=== PATIENT | female | born 1995 ===

== ENCOUNTER 2021-12-12 06:43 | Emergency (ER) | payer BC ==
[2021-12-12 07:52] LABS: Urine Blood 1+ (Negative); Urine Glucose Trace (Negative); Urine Protein Negative (Negative); Urine pH 6.5 (5.0-7.0)
[2021-12-12 07:54] LABS: Absolute Lymphocytes (CBC) 2.9 K/uL (0.7-4.9); Hematocrit 45.5 % (36.0-45.0); Lymphocytes % 26.9 % (15.3-44.8); MPV 7.2 fL (7.6-11.3); RBC Red Blood Cell Count 4.99 M/uL (3.86-4.86)
--- NOTE | 2021-12-12 08:31 | RAD REPORT ---
EXAM DESCRIPTION: US - Transvaginal OB - 12/12/2021 8:22 am CLINICAL HISTORY: VAGINAL BLEEDING COMPARISON: CT-STONE PROTOCOL dated 04/29/2011 TECHNIQUE: Endovaginal sonography performed. FINDINGS: A normal shaped intrauterine gestational sac is present in the fundal portion of the endom etrial cavity. pole is identified with heart rate measured at 70 BPM. Yolk sac is visible. Ther e is no intrauterine hematoma identified. Cervical canal appears closed. Gestational sac and po le measurements indicate a 6 week 2 day age. No blood or fluid in the cul de sac. A 3.6 centimeter complex right ovarian cyst is present. Echogenic debris is present in the cyst. Bloo d flow is seen in the right ovarian stroma. Left ovary shows normal blood flow within the stroma. No left adnexal abnormality. IMPRESSION: Single 6 week 2 day IUP with measured heart rate of 70 BPM. Cervical canal appears closed with hematoma, mass or other intrauterine abnormality. Complex 3.6 centimeter right ovarian cyst.
[2021-12-12 08:50] LABS: BUN Blood Urea Nitrogen 8 mg/dL (7-18); Bicarbonate 23 mmol/L (21-32); Glucose Level 180 mg/dL (74-106); HCG, Quantitative 2795 mIU/mL (1-3); Potassium 3.9 mmol/L (3.5-5.1); Sodium Level 139 mmol/L (136-145)
--- NOTE | 2021-12-12 09:12 | ER ---
Nurse's Notes [facility] Name: Tarah Hedrick Age: 26 yrs Sex: Female : 1995 Arrival Date: 12/12/2021 Time: 06:50 Bed 14 Private MD: Diagnosis: Threatened Presentation: 12/12 07:07 Chief complaint: Patient states: Pt c/o vaginal bleeding x 2 days along with some abd ic1 cramping. Denies fever. 6-8 weeks iup. Also states she exp some vaginal burning. AAOx4. GCS 15.. Coronavirus screen: Vaccine status: Patient reports receiving the 1st dose of the Covid vaccine. Ebola Screen: No symptoms or risks identified at this time. Initial Sepsis Screen: Does the patient meet any 2 criteria? No. Patient's initial sepsis screen is negative. Does the patient have a suspected source of infection? No. Patient's initial sepsis screen is negative. Risk Assessment: Do you want to hurt yourself or someone else? Patient reports no desire to harm self or others. Onset of symptoms was December 10, 2021. 07:07 Method Of Arrival: Ambulatory ic1 07:07 Acuity: SHIVA 3 ic1 Triage Assessment: 07:10 General: Appears in no apparent distress. comfortable, Behavior is calm, cooperative. ic1 : Reports burning with urination, cramping, vaginal bleeding that is. CHECKER: 07:30 1, Full Term 0, 0, Living 0, LMP 10/15/2021, Verified, EDC cp 07/22/2022, Gestational age from LMP: 8 weeks 2 days 09:30 LMP 10/13/2021 ww Historical: - Allergies: 07:14 No Known Allergies; [place] - Home Meds: 07:14 None [Active]; [place] - PMHx: 07:14 None; [place] - PSHx: 07:14 None; [place] - Immunization history:: Adult Immunizations up to date. - Social history:: Smoking status: Patient reports the use of cigarette tobacco products, smokes one-half pack cigarettes per day. Screenin:14 Abuse screen: Denies threats or abuse. Denies injuries from another. Nutritional [place] screening: No deficits noted. Tuberculosis screening: No symptoms or risk factors identified. Fall Risk None identified. Assessment: 07:13 Obstetrical Assessment: General assessment: awake and alert, anxious, Patient reports [place] vaginal spoting. Pain: Complains of pain in abdomen. : Reports vaginal spotting. 07:56 General: Appears in no apparent distress. comfortable, Behavior is calm, cooperative, ww appropriate for age. General: patient states she is concerned about having diabetes and has not been evaluated.. Pain: Denies pain. Neuro: Level of Consciousness is awake, alert, obeys commands, Oriented to person, place, time, situation, Speech is normal. Cardiovascular: Denies chest pain, shortness of breath, Capillary refill < 3 seconds Patient's skin is warm and dry. Respiratory: Airway is patent Respiratory effort is even, unlabored, Respiratory pattern is regular, symmetrical. GI: No deficits noted. No signs and/or symptoms were reported involving the gastrointestinal system. : Reports blood when wiping. EENT: No deficits noted. No signs and/or symptoms were reported regarding the EENT system. Derm: Skin is healthy with good turgor, Skin temperature is warm. Musculoskeletal: No deficits noted. No signs and/or symptoms reported regarding the musculoskeletal system. 08:35 Reassessment: Patient appears in no apparent distress at this time. No changes from ww previously documented assessment. Patient and/or family updated on plan of care and expected duration. Pain level reassessed. Patient is alert, oriented x 3, equal unlabored respirations, skin warm/dry/pink. ultrasound at bedside, significant other at bedside. 09:20 Reassessment: Patient appears in no apparent distress at this time. No changes from ww previously documented assessment. Patient and/or family updated on plan of care and expected duration. Pain level reassessed. Patient is alert, oriented x 3, equal unlabored respirations, skin warm/dry/pink. Vital Signs: 07:07 BP 114 / 72; Pulse 85; Temp 98.6(O); Pulse Ox 96% ; ic1 08:15 BP 117 / 64; Pulse 86; Resp 18; Pulse Ox 97% on R/A; ww 09:21 BP 102 / 72; Pulse 77; Resp 18; Pulse Ox 98% on R/A; ww ED Course: 06:50 Patient arrived in ED. es 06:53 Dane Saldaña PA is PHCP. cp 06:53 Lucius Knapp MD is Attending Physician. cp 07:09 Triage completed. ic1 07:13 Shanell Mack, RN is Primary Nurse. ll3 07:14 Bed in low position. [place] 07:14 No provider procedures requiring assistance completed. [place] 07:15 Arm band placed on left wrist. [place] 07:56 Pulse ox on. NIBP on. Warm blanket given. ww 07:56 Initial lab(s) drawn, by me, sent to lab. Inserted saline lock: 20 gauge in right ww antecubital area, using aseptic technique. Blood collected. 08:23 US Transvaginal Ob In Process Unspecified. EDMS 09:30 intact, bleeding controlled, No redness/swelling at site. Pressure dressing applied. ww Administered Medications: No medications were administered Point of Care Testing: Urine : 09:30 hCG Reading: Positive; Control Reading: Positive; ww Outcome: 09:11 Discharge ordered by MD. 09:29 Discharged to home ambulatory, with significant other. ww 09:29 Condition: stable 09:29 Discharge instructions given to patient, significant other, Instructed on discharge instructions, follow up and referral plans. safe sex practices, safety practices, Demonstrated understanding of instructions, follow-up care. 09:32 Patient left the ED. ww Signatures: Dispatcher [employer] EDDarleen Schreiber Corey, MIKE PA Shanell Cheung, RN RN ll3 Yusra Parisi RN RN ww Shavon-StagerMadhuri RN RN ha Creggett, Iesha, RN RN ic1
--- NOTE | 2021-12-12 09:12 | EDPHYS ---
Physician Documentation [facility] Name: Tarah Hedrick Age: 26 yrs Sex: Female : 1995 Arrival Date: 12/12/2021 Time: 06:50 Bed 14 Private MD: ED Physician Lucius Knapp HPI: 12/12 07:30 This 26 yrs old Female presents to ER via Ambulatory with complaints of Vaginal cp Bleeding, + Preg <12wks. 07:30 The patient presents to the emergency department with vaginal bleeding, that is light, cp with no clots. course: care: at a clinic, Leakage of Fluid: none appreciated, Ultrasound: the patient has not had an ultrasound. Previous pregnancies: the patient has never been . Associated signs and symptoms: Pertinent positives: abdominal pain, vaginal bleeding, Pertinent negatives: chest pain, diarrhea, dysuria, fever, nausea, vomiting. UNCLAIMED PROPERTY OFFICER: 07:30 1, Full Term 0, 0, Living 0, LMP 10/15/2021, Verified, EDC cp 07/22/2022, Gestational age from LMP: 8 weeks 2 days 09:30 LMP 10/13/2021 ww Historical: - Allergies: 07:14 No Known Allergies; [place] - Home Meds: 07:14 None [Active]; [place] - PMHx: 07:14 None; [place] - PSHx: 07:14 None; [place] - Immunization history:: Adult Immunizations up to date. - Social history:: Smoking status: Patient reports the use of cigarette tobacco products, smokes one-half pack cigarettes per day. ROS: 07:35 Abdomen/GI: Positive for abdominal cramps. cp 07:35 Constitutional: Negative for fever. cp 07:35 : Positive for vaginal bleeding, Negative for urinary symptoms. Exam: 07:40 Constitutional: The patient appears in no acute distress, alert, awake, non-toxic, well cp developed, well nourished. 07:40 Head/Face: Normocephalic, atraumatic. cp 07:40 Eyes: Periorbital structures: appear normal, Conjunctiva: normal, no exudate, no injection, Sclera: no appreciated abnormality, Lids and lashes: appear normal, bilaterally. 07:40 Chest/axilla: Inspection: normal. 07:40 Cardiovascular: Rate: normal, Rhythm: regular. 07:40 Respiratory: the patient does not display signs of respiratory distress, Respirations: normal, no use of accessory muscles, no retractions, labored breathing, is not present, Breath sounds: are clear throughout, no decreased breath sounds, no stridor, no wheezing. 07:40 Abdomen/GI: Inspection: abdomen appears normal, Bowel sounds: active, all quadrants, Palpation: soft, in all quadrants, mild abdominal tenderness, in the suprapubic area, rebound tenderness, is not appreciated, involuntary guarding, is not appreciated. 07:40 Back: pain, is absent, ROM is normal. Vital Signs: 07:07 BP 114 / 72; Pulse 85; Temp 98.6(O); Pulse Ox 96% ; ic1 08:15 BP 117 / 64; Pulse 86; Resp 18; Pulse Ox 97% on R/A; ww 09:21 BP 102 / 72; Pulse 77; Resp 18; Pulse Ox 98% on R/A; ww MDM: 07:11 Patient medically screened. cp 08:00 Differential diagnosis: STD, ectopic . cp 09:09 Data reviewed: vital signs, nurses notes, lab test result(s), radiologic studies, cp ultrasound. Counseling: I had a detailed discussion with the patient and/or guardian regarding: the historical points, exam findings, and any diagnostic results supporting the discharge/admit diagnosis, lab results, radiology results, the need for outpatient follow up, an OB/Gyne specialist, to return to the emergency department if symptoms worsen or persist or if there are any questions or concerns that arise at home. ED course: VSS. Discussed results of labs and US showing IUP. Will discharge to home for continued monitoring. 12/12 07:20 Order name: Abo/rh Typing; Complete Time: 08:51 12/12 08:51 Interpretation: Reviewed. 12/12 07:20 Order name: Basic Metabolic Panel; Complete Time: 09:06 12/12 09:06 Interpretation: Normal except: CL 111; GLUC 180; CRE 0.51. 12/12 07:20 Order name: CBC with Diff; Complete Time: 08:15 12/12 08:15 Interpretation: Normal except: RBC 4.99; HGB 15.4; HCT 45.5; MCV 91.2; MPV 7.2. 12/12 07:20 Order name: Quantitative Hcg; Complete Time: 09:06 cp 12/12 09:06 Interpretation: HCGQ 2795; Reviewed. cp 12/12 07:52 Order name: Urine Dipstick-Ancillary EDMS 12/12 07:58 Order name: Urine --Ancillary (enter results); Complete Time: 08:15 eb 12/12 07:20 Order name: IV Saline Lock; Complete Time: 07:51 cp 12/12 07:20 Order name: Labs collected and sent; Complete Time: 07:51 cp 12/12 07:20 Order name: NPO; Complete Time: 07:52 cp 12/12 07:20 Order name: Urine Dipstick-Ancillary (obtain specimen); Complete Time: 07:52 cp 12/12 07:20 Order name: Urine Test (obtain specimen); Complete Time: 07:52 cp 12/12 07:35 Order name: US Transvaginal Ob; Complete Time: 08:51 cp Administered Medications: No medications were administered Point of Care Testing: Urine : 09:30 hCG Reading: Positive; Control Reading: Positive; ww Disposition: 09:20 Chart complete. cp Disposition Summary: 12/12/21 09:11 Discharge Ordered Location: Home cp Problem: new cp Symptoms: have improved cp Condition: Stable cp Diagnosis - Threatened cp Followup: cp - With: Private Physician - When: 1 week - Reason: Recheck today's complaints Discharge Instructions: - Discharge Summary Sheet cp - Care cp - Threatened Miscarriage cp - Vaginal Bleeding During , First Trimester cp - Activity Restriction During cp Forms: - Medication Reconciliation Form cp - Thank You Letter cp - Antibiotic Education cp - Prescription Opioid Use cp Addendum: 12/16/2021 08:31 Co-signature as Attending Physician, Lucius Knapp MD. r n Signatures: Dispatcher [employer] Lucius Chiang MD MD rn Page, Corey, PA PA cp Shavon-TelmarMadhuri RN Fina Mccormick RN RN ic1
[2021-12-12 09:49] VITALS: TEMP 98.6
[2021-12-12 09:52] VITALS: BP 102/72; O2SAT 98
== END 2021-12-12 09:32 | disposition home or self-care (01) ==
LOC: ER 06:43
DX: O20.0 Threatened abortion (principal); O99.331 Smoking (tobacco) complicating pregnancy, first trimester; F17.210 Nicotine dependence, cigarettes, uncomplicated
CPT/HCPCS: 36415; 76817; 80048; 81003; 81025; 84702; 85025; 86900; 86901; 99284